=== PATIENT | male | born 1975 | race Caucasian/White ===

== ENCOUNTER 2016-11-15 13:31 | Emergency (ER) | payer OTHER ==
--- NOTE | 2016-11-15 16:01 | DIAGNOSTIC IMAGING REPORT ---
PROCEDURE: XR LUMBAR SPINE 2 OR 3 VIEWS INDICATION: TRAUMA TECHNIQUE: Three views. COMPARISON: None. FINDINGS: Normal alignment without fracture. Loss of lordosis. Moderate L5-S1 disc space narrowing. Soft tissues are unremarkable. IMPRESSION: 1. Loss of lordosis suggestive of muscular spasm. 2. L5-S1 disc space narrowing.
--- NOTE | 2016-11-15 16:35 | ED CLINICAL REPORT ---
Clinical Report - Physicians/Mid Levels [facility] [address] [place] [place] [address] 11/15/2016 15:02 Patient: GABBY FERNANDEZ Time Seen: 15:13. Arrived- By private vehicle. Historian- patient. HISTORY OF PRESENT ILLNESS Chief Complaint: INJURY TO MID- BACK. The injury occurred yesterday. (In a forest). ( Pt was walking across and downed log natural tree bridge. He lost his balance and fell 20 feet into a soft loam covered forest floor. He walked back to his house but notes back pain.). Fell over 10 feet. The patient complains of moderate pain. No blow to the head, neck pain or loss of consciousness. Not dazed. REVIEW OF SYSTEMS No numbness, dizziness, loss of vision, chest pain or difficulty breathing. No weakness, headache, laceration or vomiting. He has had nausea and abdominal pain. PAST HISTORY PCP: None Illness: TBI, remote history of back pain, migraine headaches. Last tetanus immunization was not more than 10 years ago. SOCIAL HISTORY Current every day smoker. ADDITIONAL NOTES The nursing notes have been reviewed. PHYSICAL EXAM Vital Signs: 11/15/2016 17:15 BP: 114/71. HR: 58. RR: 16. O2 saturation: 99%. Temp: 98.6 F. Pain level now: 04/18. 11/15/2016 15:30 BP: 128/84. HR: 82. RR: 16. O2 saturation: 98%. Pain level now: 04/18. 11/15/2016 15:07 BP: 131/89. HR: 71. RR: 18. O2 saturation: 100%. Temp: 97.4 F. Pain level now: 06/18. Appearance: Alert. Patient in mild distress. Head: Head non-tender. No swelling of head. Eyes: Pupils equal, round and reactive to light. EOM intact. ENT: No dental injury. Neck: Non-tender. Respiratory: Breath sounds normal. Chest nontender. Abdomen: No visible injury. Soft and nontender. Bowel sounds normal. Back: Moderate vertebral point tenderness over the upper and mid lumbar spine. Extremities: Normal inspection. Pelvis stable. Extremities atraumatic. No lower extremity edema. Neuro: Oriented X 3. No motor deficit. No sensory deficit. LABS, X-RAYS, AND EKG LS-Spine X-rays: (PROCEDURE: XR LUMBAR SPINE 2 OR 3 VIEWS INDICATION: TRAUMA TECHNIQUE: Three views. COMPARISON: None. FINDINGS: Normal alignment without fracture. Loss of lordosis. Moderate L5-S1 disc space narrowing. Soft tissues are unremarkable. IMPRESSION: 1. Loss of lordosis suggestive of muscular spasm. 2. L5-S1 disc space narrowing. Electronically Final signed by:Latrell Clay MD 11/15/2016 4:01:07 PM). PROGRESS AND PROCEDURES Course of Care: Meds [facility] [place]. Disposition: Discharged. Condition: stable. CLINICAL IMPRESSION Muscle strain of the low back. Contusion. Fall from tree. INSTRUCTIONS Apply ice. Prescription Medications: Hydrocodone/APAP 5mg / 325mg: take 1-2 orally every 4 hours as needed for pain. Dispense fifteen (15). No refill. Ibuprofen take 1 tablet orally every 8 hours for 7 days. No refill. (1 po 8hr not prn #30) Flexeril 10 mg: Take 1 orally every 8 hours as needed for muscle spasm. Dispense twenty (20). No refills. Substitution is permissible. Understanding of the discharge instructions verbalized by patient. Follow-up with: [facility], , , [address], , [place], [id number] Follow up in seven days if not better. Call for an appointment. (Electronically signed by Barrington Rascon MD 11/17/2016 13:58)
--- NOTE | 2016-11-15 16:35 | ED NURSING NOTES ---
Clinical Report - Nurses [facility] [place] [address] 11/15/2016 15:02 Patient: GABBY FERNANDEZ TRIAGE Triage time 15:Nov 15 2016. Acuity: LEVEL 3. Chief Complaint: BACK PAIN. Alert. PREMA COMA SCORE: Prema Coma Scale: 15- eyes open spontaneously (4); best verbal response- oriented x 4 (5); best motor response- obeys commands (6). --15:18 Valentino Gasca R.N. 15:07 11/15/16. BP: 131/89. HR: 71. RR: 18. O2 saturation: 100%. Temp: 97.4 F (oral). Pain level now: 10/10. Additional comments: Lower Back pain. --15:18 Valentino Gasca R.N. Weight: 58.9 kg stated. Height/Length: 70 inches Per Patient. BMI: 18.6. --15:09 Valentino Gasca R.N. Medications None. --15:11 Valentino Gasca R.N. Allergies NKA. --15:11 Valentino Gasca R.N. Medication/allergy information source: the patient. --15:18 Valentino Gasca R.N. History Arrived by private vehicle. Historian: patient. Accompanied by family and (mother). Primary physician (Betty). ( Back Pain exacerbated by falling 20 feet off a tree. Pt states that he was climbing a fallen tree with his dog.). This started yesterday. Onset. (about 24 hours ago). He has had trouble walking. History of recent trauma- (fell 20 feet). Occurred at home. Treatment STATE ASSESSED PROPERTIES DIRECTOR: None. PAST MEDICAL HX: Tetanus status: up-to-date. Immunizations: status is unknown. SOCIAL HX: Heavy tobacco smoker (cigarette)- less than 1 pack per day. History of drug use: marijuana. No alcohol use. No infectious disease exposure. ABUSE ASSESSMENT: No report of abuse. FALL RISK ASSESSMENT: Fall risk assessment completed. No fall risk identified. NUTRITIONAL RISK ASSESSMENT: The nutritional risk assessment revealed no deficiencies. FUNCTIONAL ASSESSMENT: Functional assessment: no impairments noted. LEARNING NEEDS ASSESSMENT: The learning needs assessment revealed no barriers. SKIN INTEGRITY ASSESSMENT: Skin integrity risk assessment completed. No skin integrity risk identified. --15:18 Valentino Gasca R.N. PROBLEMS: Pneumothorax. --15:13 Valentino Gasca R.N. Traumatic Brain Accident. --15:15 Valentino Gasca R.N. Migraine Headache. --15:16 Valentino Gasca R.N. ADDITIONAL SURGERIES: (L) Hand. --15:13 Valentino Gasca R.N. Interventions ID band on patient. To treatment room. --15:18 Valentino Gasca R.N. PHYSICAL ASSESSMENT To room via wheelchair. GENERAL / NEURO / PSYCH: Alert. Oriented X 4. Appears in pain. RESPIRATORY: Respirations not labored. CVS: Normal heart rate and rhythm. GI / : Abdomen soft. Bowel sounds within normal limits. EXTREMITIES: Limited ROM present (pt states that he is barely able to walk). Sensation intact in extremities. BACK: Vertebral point tenderness over the lumbar spine. --15:19 Valentino Gasca R.N. NURSING PROGRESS NOTES Patient gowned. Reassurance given. Patient identifiers checked. Call light placed in reach of patient. Side rails up x 1. Bed placed in lowest position. Brakes of bed on. Patient placed in chair. Patient ready for evaluation- chart flagged and ED physician notified. --15:19 Valentino Gasca R.N. 15:36 11/15/2016 Percocet (Oxycodone-Acetaminophen) PO 5/325 mg Tablets 1 tab given. Allergies verified, confirmed 5 rights and sedative warning given to the patient. --15:41 Valentino Gasca R.N. 16:00 11/15/16. Patient transported to radiology by wheelchair with tech. --16:30 Valentino Gasca R.N. Patient returned from radiology by stretcher with tech. ([id number]). --16:31 Valentino Gasca R.N. 17:17 11/15/2016 Valium (Diazepam) PO Tablets 5 mg given. Allergies verified, confirmed 5 rights and sedative warning given to the patient. --17:42 Valentino Gasca R.N. 17:20 11/15/2016 Ibuprofen PO 600 mg given. --17:43 Valentino Gasca R.N. 15:30 11/15/16. BP: 128/84. HR: 82. RR: 16. O2 saturation: 98%. Pain level now: 04/18. Additional comments: Back Pain. --17:53 Valentino Gasca R.N. DISPOSITION / DISCHARGE 17:15 11/15/16. BP: 114/71. HR: 58. RR: 16. O2 saturation: 99% on room air. Temp: 98.6 F (oral). Pain level now: 04/18. Additional comments: Lower Back Pain. --17:45 Valentino Gasca R.N. Departure time: 1725. --17:46 Valentino Gasca R.N. 17:25. Condition at departure: improved. Fall risk assessment completed. Risk factors identified include severe pain and patient history of fall. Fall interventions initiated. Patient placed in wheelchair. Instructed not to get up without assistance. No learning barriers present. Discharge instructions provided and reviewed with the patient. Reviewed medication(s) (prescription given to pt). Reviewed referral to family practice for followup. Patient verbalized understanding. Written instructions provided in Polish. The patient was discharged by the physician. He was discharged home and accompanied by parent. He left the Emergency Department in a wheelchair and via private vehicle. Parent driving. --17:48 Valentino Gasca R.N. Locked/Released at 11/15/2016 17:54 by Valentino Gasca R.N.
--- NOTE | 2016-11-15 16:35 | ED ORDER SUMMARY ---
..... Patient: GABBY FERNANDEZ OrderSheet [facility] VisitID: [id number] [place] [address] 41y, M Registration Date/Time: 11/15/2016 ORDER SHEET Weight: 58.9 kg (stated) Allergies: NKA GENERAL ORDERS: Lumbar Spine 2 or 3V Urgent (15:23 11/15/2016 Elizabeth PONCE) (Ack 15:41 TBergley) (15:55 TBergley) MEDICATION ORDERS: Percocet PO 5/325 mg one tab (HIGH ALERT MEDICATION) (15:26 11/15/2016 Elizabeth PONCE) (15:41 omandayan R.N.) Valium PO 5 mg (HIGH ALERT MEDICATION, NOW) (16:32 11/15/2016 Elizabeth PONCE) (17:42 Cara R.N.) Ibuprofen PO 600 mg (NOW) (16:33 11/15/2016 Elizabeth PONCE) (17:43 Cara R.N.) IV FLUIDS: ORDER SHEET NOTES: [Electronically signed by Valentino Gasca R.N. (17:54 11/15/2016)] [Electronically signed by Barrington Rascon MD (13:58 11/17/2016)] [Electronically locked/signed by Valentino Gasca R.N. (17:54 11/15/2016)]
--- NOTE | 2016-11-15 16:35 | ED NURSING NOTES ---
Clinical Report - Nurses [facility] [place] [address] 11/15/2016 15:02 Patient: GABBY FERNANDEZ TRIAGE Triage time 15:Nov 15 2016. Acuity: LEVEL 3. Chief Complaint: BACK PAIN. Alert. PREMA COMA SCORE: Prema Coma Scale: 15- eyes open spontaneously (4); best verbal response- oriented x 4 (5); best motor response- obeys commands (6). --15:18 Valentino Gasca R.N. 15:07 11/15/16. BP: 131/89. HR: 71. RR: 18. O2 saturation: 100%. Temp: 97.4 F (oral). Pain level now: 10/10. Additional comments: Lower Back pain. --15:18 Valentino Gasca R.N. Weight: 58.9 kg stated. Height/Length: 70 inches Per Patient. BMI: 18.6. --15:09 Valentino Gasca R.N. Medications None. --15:11 Valentino Gasca R.N. Allergies NKA. --15:11 Valentino Gasca R.N. Medication/allergy information source: the patient. --15:18 Valentino Gasca R.N. History Arrived by private vehicle. Historian: patient. Accompanied by family and (mother). Primary physician (Betty). ( Back Pain exacerbated by falling 20 feet off a tree. Pt states that he was climbing a fallen tree with his dog.). This started yesterday. Onset. (about 24 hours ago). He has had trouble walking. History of recent trauma- (fell 20 feet). Occurred at home. Treatment LEAD SECURITY OFFICER: None. PAST MEDICAL HX: Tetanus status: up-to-date. Immunizations: status is unknown. SOCIAL HX: Heavy tobacco smoker (cigarette)- less than 1 pack per day. History of drug use: marijuana. No alcohol use. No infectious disease exposure. ABUSE ASSESSMENT: No report of abuse. FALL RISK ASSESSMENT: Fall risk assessment completed. No fall risk identified. NUTRITIONAL RISK ASSESSMENT: The nutritional risk assessment revealed no deficiencies. FUNCTIONAL ASSESSMENT: Functional assessment: no impairments noted. LEARNING NEEDS ASSESSMENT: The learning needs assessment revealed no barriers. SKIN INTEGRITY ASSESSMENT: Skin integrity risk assessment completed. No skin integrity risk identified. --15:18 Valentino Gasca R.N. PROBLEMS: Pneumothorax. --15:13 Valentino Gasca R.N. Traumatic Brain Accident. --15:15 Valentino Gasca R.N. Migraine Headache. --15:16 Valentino Gasca R.N. ADDITIONAL SURGERIES: (L) Hand. --15:13 Valentino Gasca R.N. Interventions ID band on patient. To treatment room. --15:18 Valentino Gasca R.N. PHYSICAL ASSESSMENT To room via wheelchair. GENERAL / NEURO / PSYCH: Alert. Oriented X 4. Appears in pain. RESPIRATORY: Respirations not labored. CVS: Normal heart rate and rhythm. GI / : Abdomen soft. Bowel sounds within normal limits. EXTREMITIES: Limited ROM present (pt states that he is barely able to walk). Sensation intact in extremities. BACK: Vertebral point tenderness over the lumbar spine. --15:19 Valentino Gasca R.N. NURSING PROGRESS NOTES Patient gowned. Reassurance given. Patient identifiers checked. Call light placed in reach of patient. Side rails up x 1. Bed placed in lowest position. Brakes of bed on. Patient placed in chair. Patient ready for evaluation- chart flagged and ED physician notified. --15:19 Valentino Gasca R.N. 15:36 11/15/2016 Percocet (Oxycodone-Acetaminophen) PO 5/325 mg Tablets 1 tab given. Allergies verified, confirmed 5 rights and sedative warning given to the patient. --15:41 Valentino Gasca R.N. 16:00 11/15/16. Patient transported to radiology by wheelchair with tech. --16:30 Valentino Gasca R.N. Patient returned from radiology by stretcher with tech. ([id number]). --16:31 Valentino Gasca R.N. 17:17 11/15/2016 Valium (Diazepam) PO Tablets 5 mg given. Allergies verified, confirmed 5 rights and sedative warning given to the patient. --17:42 Valentino Gasca R.N. 17:20 11/15/2016 Ibuprofen PO 600 mg given. --17:43 Valentino Gasca R.N. 15:30 11/15/16. BP: 128/84. HR: 82. RR: 16. O2 saturation: 98%. Pain level now: 04/18. Additional comments: Back Pain. --17:53 Valentino Gasca R.N. DISPOSITION / DISCHARGE 17:15 11/15/16. BP: 114/71. HR: 58. RR: 16. O2 saturation: 99% on room air. Temp: 98.6 F (oral). Pain level now: 04/18. Additional comments: Lower Back Pain. --17:45 Valentino Gasca R.N. Departure time: 1725. --17:46 Valentino Gasca R.N. 17:25. Condition at departure: improved. Fall risk assessment completed. Risk factors identified include severe pain and patient history of fall. Fall interventions initiated. Patient placed in wheelchair. Instructed not to get up without assistance. No learning barriers present. Discharge instructions provided and reviewed with the patient. Reviewed medication(s) (prescription given to pt). Reviewed referral to family practice for followup. Patient verbalized understanding. Written instructions provided in [place]. The patient was discharged by the physician. He was discharged home and accompanied by parent. He left the Emergency Department in a wheelchair and via private vehicle. Parent driving. --17:48 Valentino Gasca R.N. Locked/Released at 11/15/2016 17:54 by Valentino Gasca R.N.
--- NOTE | 2016-11-15 16:35 | ED ORDER SUMMARY ---
..... Patient: GABBY FERNANDEZ OrderSheet [facility] VisitID: [id number] [place] [address] 41y, M Registration Date/Time: 11/15/2016 ORDER SHEET Weight: 58.9 kg (stated) Allergies: NKA GENERAL ORDERS: Lumbar Spine 2 or 3V Urgent (15:23 11/15/2016 Elizabeth PONCE) (Ack 15:41 TBergley) (15:55 TBergley) MEDICATION ORDERS: Percocet PO 5/325 mg one tab (HIGH ALERT MEDICATION) (15:26 11/15/2016 Elizabeth PONCE) (15:41 omandayan R.N.) Valium PO 5 mg (HIGH ALERT MEDICATION, NOW) (16:32 11/15/2016 Elizabeth PONCE) (17:42 Cara R.N.) Ibuprofen PO 600 mg (NOW) (16:33 11/15/2016 Elizabeth PONCE) (17:43 Cara R.N.) IV FLUIDS: ORDER SHEET NOTES: [Electronically signed by Valentino Gasca R.N. (17:54 11/15/2016)] [Electronically signed by Barrington Rascon MD (13:58 11/17/2016)] [Electronically locked/signed by Valentino Gasca R.N. (17:54 11/15/2016)]
--- NOTE | 2016-11-15 16:35 | ED CLINICAL REPORT ---
Clinical Report - Physicians/Mid Levels [facility] [address] [place] [place] [address] 11/15/2016 15:02 Patient: GABBY FERNANDEZ Time Seen: 15:13. Arrived- By private vehicle. Historian- patient. HISTORY OF PRESENT ILLNESS Chief Complaint: INJURY TO MID- BACK. The injury occurred yesterday. (In a forest). ( Pt was walking across and downed log natural tree bridge. He lost his balance and fell 20 feet into a soft loam covered forest floor. He walked back to his house but notes back pain.). Fell over 10 feet. The patient complains of moderate pain. No blow to the head, neck pain or loss of consciousness. Not dazed. REVIEW OF SYSTEMS No numbness, dizziness, loss of vision, chest pain or difficulty breathing. No weakness, headache, laceration or vomiting. He has had nausea and abdominal pain. PAST HISTORY PCP: None Illness: TBI, remote history of back pain, migraine headaches. Last tetanus immunization was not more than 10 years ago. SOCIAL HISTORY Current every day smoker. ADDITIONAL NOTES The nursing notes have been reviewed. PHYSICAL EXAM Vital Signs: 11/15/2016 17:15 BP: 114/71. HR: 58. RR: 16. O2 saturation: 99%. Temp: 98.6 F. Pain level now: 04/18. 11/15/2016 15:30 BP: 128/84. HR: 82. RR: 16. O2 saturation: 98%. Pain level now: 04/18. 11/15/2016 15:07 BP: 131/89. HR: 71. RR: 18. O2 saturation: 100%. Temp: 97.4 F. Pain level now: 06/18. Appearance: Alert. Patient in mild distress. Head: Head non-tender. No swelling of head. Eyes: Pupils equal, round and reactive to light. EOM intact. ENT: No dental injury. Neck: Non-tender. Respiratory: Breath sounds normal. Chest nontender. Abdomen: No visible injury. Soft and nontender. Bowel sounds normal. Back: Moderate vertebral point tenderness over the upper and mid lumbar spine. Extremities: Normal inspection. Pelvis stable. Extremities atraumatic. No lower extremity edema. Neuro: Oriented X 3. No motor deficit. No sensory deficit. LABS, X-RAYS, AND EKG LS-Spine X-rays: (PROCEDURE: XR LUMBAR SPINE 2 OR 3 VIEWS INDICATION: TRAUMA TECHNIQUE: Three views. COMPARISON: None. FINDINGS: Normal alignment without fracture. Loss of lordosis. Moderate L5-S1 disc space narrowing. Soft tissues are unremarkable. IMPRESSION: 1. Loss of lordosis suggestive of muscular spasm. 2. L5-S1 disc space narrowing. Electronically Final signed by:Latrell Clay MD 11/15/2016 4:01:07 PM). PROGRESS AND PROCEDURES Course of Care: Meds [facility] [place]. Disposition: Discharged. Condition: stable. CLINICAL IMPRESSION Muscle strain of the low back. Contusion. Fall from tree. INSTRUCTIONS Apply ice. Prescription Medications: Hydrocodone/APAP 5mg / 325mg: take 1-2 orally every 4 hours as needed for pain. Dispense fifteen (15). No refill. Ibuprofen take 1 tablet orally every 8 hours for 7 days. No refill. (1 po 8hr not prn #30) Flexeril 10 mg: Take 1 orally every 8 hours as needed for muscle spasm. Dispense twenty (20). No refills. Substitution is permissible. Understanding of the discharge instructions verbalized by patient. Follow-up with: [facility], , , [address], , [place], [id number] Follow up in seven days if not better. Call for an appointment. (Electronically signed by Barrington Rascon MD 11/17/2016 13:58)
--- NOTE | 2016-11-17 13:58 | ED MED RECONCILIATION SUMMARY ---
Patient: GABBY FERNANDEZ Medication Reconciliation Report [facility] VisitID: [id number] [place] [address] 41y, M Registration Date/Time: 11/15/2016 Weight: 58.9 kg Height/Length: 70 in. BMI: 18.6 ALLERGIES: NKA The patient's Home Medications are listed below: NONE. The source(s) of the original Home Medication information: patient The following Medications were given to the patient in the Emergency Department: Percocet [PO] PO 1 tab, administered: 11/15/2016 3:36:00 PM Valium [PO] PO 5 mg, administered: 11/15/2016 5:17:00 PM Ibuprofen [PO] PO 600 mg, administered: 11/15/2016 5:20:00 PM The following Medications were prescribed to the patient: Hydrocodone/APAP 5mg / 325mg: take 1-2 orally every 4 hours as needed for pain. Dispense fifteen (15). No refill. -- Barrington Rascon MD Ibuprofen take 1 tablet orally every 8 hours for 7 days. No refill.(1 po 8hr not prn #30) -- [place] Rascon MD Flexeril 10 mg: Take 1 orally every 8 hours as needed for muscle spasm. Dispense twenty (20). No refills. Substitution is permissible. -- Barrington Rascon MD
--- NOTE | 2016-11-17 13:58 | ED MAR SUMMARY ---
..... Medication Administration Record [facility] [address] [place] [address] Patient: GABBY FERNANEDZ Visit ID: [id number] 41y, M Weight: 58.9 kg Height/Length: 70 in BMI: 18.6 ALLERGIES: NKA Given 15:36 11/15/2016 Valentino Gasca, R.N. Medication Administered: PERCOCET [PO] (OXYCODONE-ACETAMINOPHEN), Dose: 1 tab 5/325 mg Tablets PO. Medication Ordered: Percocet PO 5/325 mg one tab (HIGH ALERT MEDICATION). Given 17:17 11/15/2016 Valentino Gasca, R.N. Medication Administered: VALIUM [PO] (DIAZEPAM), Dose: 5 mg Tablets PO. Medication Ordered: Valium PO 5 mg (HIGH ALERT MEDICATION, NOW). Given 17:20 11/15/2016 Valentino Gasca, R.N. Medication Administered: IBUPROFEN [PO], Dose: 600 mg PO. Medication Ordered: Ibuprofen PO 600 mg (NOW).
--- NOTE | 2016-11-17 13:58 | ED DISCHARGE INSTRUCTIONS ---
Patient: GABBY FERNANDEZ General Instructions [facility] VisitID: [id number] [address], [place] [address] 41y, M Registration Date/Time: 11/15/2016 Muscle strain of the low back. Contusion. Fall from tree. INSTRUCTIONS Apply ice. Prescription Medications: Hydrocodone/APAP 5mg / 325mg: take 1-2 orally every 4 hours as needed for pain. Dispense fifteen (15). No refill. Ibuprofen take 1 tablet orally every 8 hours for 7 days. No refill. (1 po 8hr not prn #30) Flexeril 10 mg: Take 1 orally every 8 hours as needed for muscle spasm. Dispense twenty (20). No refills. Substitution is permissible. Understanding of the discharge instructions verbalized by patient. Follow-up with: [facility], , , [address], , [place], [address] Follow up in seven days if not better. Call for an appointment. ADDITIONAL INFORMATION Mechanical Fall You have had a fall today. It appears that the cause is mechanical. That means that you slipped, tripped or lost your balance. If your fall had been due to fainting or a seizure, further tests would be required. Home Care: Rest today and resume your normal activities when you are feeling back to normal. If you were injured during the fall, follow the advice from your doctor regarding care of your injury. You may use acetaminophen (Tylenol) or ibuprofen (Motrin, Advil) to control pain, unless another pain medicine was prescribed. [NOTE: If you have chronic liver or kidney disease or ever had a stomach ulcer or GI bleeding, talk with your doctor before using these medicines.] Fall Prevention: Was there anything that caused your fall that can be fixed, removed, or replaced? Make your home safe by keeping walkways clear of objects you may trip over. Use non-slip pads under rugs. Do not walk in poorly lit areas. Do not stand on chairs or wobbly ladders. Use caution when reaching overhead or looking upward. This position can cause a loss of balance. Be sure your shoes fit properly, have non-slip bottoms and are in good condition. Be cautious when going up and down curbs, and walking on uneven sidewalks. If your balance is poor, consider using a cane or walker. Stay as active as you can. Balance, flexibility, strength, and endurance all come from exercise. They all play a role in preventing falls. Follow Up with your doctor or as advised by our staff. Get Prompt Medical Attention if any of the following occur: Repeated mechanical falls, or unexplained falls Dizziness, fainting or seizure Severe headache Chest pain or shortness of breath Palpitations (very rapid or very slow or irregular heartbeat) Blood in vomit, stools (black or red color) Weakness of an arm or leg or one side of the face Difficulty with speech or vision Back Pain [Acute Or Chronic] Back pain is usually caused by an injury to the muscles or ligaments of the spine. Sometimes the disks that separate each bone in the spine may bulge and cause pain by pressing on a nearby nerve. Back pain may also appear after a sudden twisting/bending force (such as in a car accident), after a simple awkward movement, or lifting something heavy with poor body positioning. In either case, muscle spasm is often present and adds to the pain. Acute back pain usually gets better in one to two weeks. Back pain related to disk disease, arthritis in the spinal joints or spinal stenosis (narrowing of the spinal canal) can become chronic and last for months or years. Unless you had a physical injury (for example, a car accident or fall) X-rays are usually not ordered for the initial evaluation of back pain. If pain continues and does not respond to medical treatment, x-rays and other tests may be performed at a later time. Home Care: You may need to stay in bed the first few days. But, as soon as possible, begin sitting or walking to avoid problems with prolonged bed rest (muscle weakness, worsening back stiffness and pain, blood clots in the legs). When in bed, try to find a position of comfort. A firm mattress is best. Try lying flat on your back with pillows under your knees. You can also try lying on your side with your knees bent up towards your chest and a pillow between your knees. Avoid prolonged sitting. This puts more stress on the lower back than standing or walking. During the first two days after injury, apply an ICE PACK to the painful area for 20 minutes every 2-4 hours. This will reduce swelling and pain. HEAT (hot shower, hot bath or heating pad) works well for muscle spasm. You can start with ice, then switch to heat after two days. Some patients feel best alternating ice and heat treatments. Use the one method that feels the best to you. You may use acetaminophen (Tylenol) or ibuprofen (Motrin, Advil) to control pain, unless another pain medicine was prescribed. [NOTE: If you have chronic liver or kidney disease or ever had a stomach ulcer or GI bleeding, talk with your doctor before using these medicines.] Be aware of safe lifting methods and do not lift anything over 15 pounds until all the pain is gone. Follow Up with your doctor or this facility if your symptoms do not start to improve after one week. Physical therapy may be needed. [NOTE: If X-rays were taken, they will be reviewed by a radiologist. You will be notified of any new findings that may affect your care.] Get Prompt Medical Attention if any of the following occur: Pain becomes worse or spreads to your legs Weakness or numbness in one or both legs Loss of bowel or bladder control Numbness in the groin or genital area Contusion,Soft Tissue You have a CONTUSION, which is a bruise with swelling and some bleeding under the skin. There are no broken bones. This injury takes a few days to a few weeks to heal. Home Care: 1) Keep the injured part elevated to reduce pain and swelling. This is especially important during the first 48 hours. 2) Make an ice pack (ice cubes in a plastic bag, wrapped in a towel) and apply for 20 minutes every 1-2 hours the first day. Continue this 3-4 times a day until the pain and swelling goes away. 3) You may use acetaminophen (Tylenol) or ibuprofen (Motrin, Advil) to control pain, unless another pain medicine was prescribed. [ NOTE : If you have chronic liver or kidney disease or ever had a stomach ulcer or GI bleeding, talk with your doctor before using these medicines.] Follow Up with your doctor or this facility if you are not improving within the next THREE days. [NOTE: If X-rays were taken, they will be reviewed by a radiologist. You will be notified of any new findings that may affect your care.] Get Prompt Medical Attention if any of the following occur: -- Pain or swelling increases -- Injured arm or leg becomes cold, blue, numb or tingly -- Redness, warmth or drainage from the skin Hydrocodone Bitartrate, Acetaminophen Oral tablet What is this medicine? ACETAMINOPHEN; HYDROCODONE (a set a MARIANNE blake fen; naima droe KOE done) is a pain reliever. It is used to treat mild to moderate pain. How should I use this medicine? Take this medicine by mouth. Swallow it with a full glass of water. Follow the directions on the prescription label. If the medicine upsets your stomach, take the medicine with food or milk. Do not take more than you are told to take. Talk to your drill press set up operator regarding the use of this medicine in children. This medicine is not approved for use in children. What side effects may I notice from receiving this medicine? Side effects that you should report to your doctor or health respiratory care assistant as soon as possible: allergic reactions like skin rash, itching or hives, swelling of the face, lips, or tongue breathing problems confusion feeling faint or lightheaded, falls stomach pain yellowing of the eyes or skin Side effects that usually do not require medical attention (report to your doctor or health respiratory care assistant if they continue or are bothersome): nausea, vomiting stomach upset What may interact with this medicine? alcohol antihistamines isoniazid medicines for depression, anxiety, or psychotic disturbances medicines for sleep muscle relaxants naltrexone narcotic medicines (opiates) for pain phenobarbital ritonavir tramadol What if I miss a dose? If you miss a dose, take it as soon as you can. If it is almost time for your next dose, take only that dose. Do not take double or extra doses. Where should I keep my medicine? Keep out of the reach of children. This medicine can be abused. Keep your medicine in a safe place to protect it from theft. Do not share this medicine with anyone. Selling or giving away this medicine is dangerous and against the law. Store at room temperature between 15 and 30 degrees C (59 and 86 degrees F). Protect from light. Keep container tightly closed. Throw away any unused medicine after the expiration date. Discard unused medicine and used packaging carefully. Pets and children can be harmed if they find used or lost packages. What should I tell my health care provider before I take this medicine? They need to know if you have any of these conditions: brain tumor Crohn's disease, inflammatory bowel disease, or ulcerative colitis drink more than 3 alcohol-containing drinks per day drug abuse or addiction head injury heart or circulation problems kidney disease or problems going to the bathroom liver disease lung disease, asthma, or breathing problems an unusual or allergic reaction to acetaminophen, hydrocodone, other opioid analgesics, other medicines, foods, dyes, or preservatives or trying to get breast-feeding What should I watch for while using this medicine? Tell your doctor or health respiratory care assistant if your pain does not go away, if it gets worse, or if you have new or a different type of pain. You may develop tolerance to the medicine. Tolerance means that you will need a higher dose of the medicine for pain relief. Tolerance is normal and is expected if you take the medicine for a long time. Do not suddenly stop taking your medicine because you may develop a severe reaction. Your body becomes used to the medicine. This does NOT mean you are addicted. Addiction is a behavior related to getting and using a drug for a non-medical reason. If you have pain, you have a medical reason to take pain medicine. Your doctor will tell you how much medicine to take. If your doctor wants you to stop the medicine, the dose will be slowly lowered over time to avoid any side effects. You may get drowsy or dizzy when you first start taking the medicine or change doses. Do not drive, use machinery, or do anything that may be dangerous until you know how the medicine affects you. Stand or sit up slowly. There are different types of narcotic medicines (opiates) for pain. If you take more than one type at the same time, you may have more side effects. Give your health care provider a list of all medicines you use. Your doctor will tell you how much medicine to take. Do not take more medicine than directed. Call emergency for help if you have problems breathing. The medicine will cause constipation. Try to have a bowel movement at least every 2 to 3 days. If you do not have a bowel movement for 3 days, call your doctor or health respiratory care assistant. Too much acetaminophen can be very dangerous. Do not take Tylenol (acetaminophen) or medicines that contain acetaminophen with this medicine. Many non-prescription medicines contain acetaminophen. Always read the labels carefully. You have been given the following additional information: Fall, Mechanical Back Pain (Acute Or Chronic) Contusion, Soft Tissue Hydrocodone Bitartrate, Acetaminophen Oral tablet (Electronically signed by Barrington Rascon MD 11/17/2016 13:58)
--- NOTE | 2016-11-17 13:58 | ED MAR SUMMARY ---
..... Medication Administration Record [facility] [address] [place] [address] Patient: GABBY FERNANDEZ Visit ID: [id number] 41y, M Weight: 58.9 kg Height/Length: 70 in BMI: 18.6 ALLERGIES: NKA Given 15:36 11/15/2016 Valentino Gasca, R.N. Medication Administered: PERCOCET [PO] (OXYCODONE-ACETAMINOPHEN), Dose: 1 tab 5/325 mg Tablets PO. Medication Ordered: Percocet PO 5/325 mg one tab (HIGH ALERT MEDICATION). Given 17:17 11/15/2016 Valentino Gasca, R.N. Medication Administered: VALIUM [PO] (DIAZEPAM), Dose: 5 mg Tablets PO. Medication Ordered: Valium PO 5 mg (HIGH ALERT MEDICATION, NOW). Given 17:20 11/15/2016 Valentino Gasca, R.N. Medication Administered: IBUPROFEN [PO], Dose: 600 mg PO. Medication Ordered: Ibuprofen PO 600 mg (NOW).
--- NOTE | 2016-11-17 13:58 | ED MED RECONCILIATION SUMMARY ---
Patient: GABBY FERNANDEZ Medication Reconciliation Report [facility] VisitID: [id number] [place] [address] 41y, M Registration Date/Time: 11/15/2016 Weight: 58.9 kg Height/Length: 70 in. BMI: 18.6 ALLERGIES: NKA The patient's Home Medications are listed below: NONE. The source(s) of the original Home Medication information: patient The following Medications were given to the patient in the Emergency Department: Percocet [PO] PO 1 tab, administered: 11/15/2016 3:36:00 PM Valium [PO] PO 5 mg, administered: 11/15/2016 5:17:00 PM Ibuprofen [PO] PO 600 mg, administered: 11/15/2016 5:20:00 PM The following Medications were prescribed to the patient: Hydrocodone/APAP 5mg / 325mg: take 1-2 orally every 4 hours as needed for pain. Dispense fifteen (15). No refill. -- Barrington Rascon MD Ibuprofen take 1 tablet orally every 8 hours for 7 days. No refill.(1 po 8hr not prn #30) -- Barrington Rascon MD Flexeril 10 mg: Take 1 orally every 8 hours as needed for muscle spasm. Dispense twenty (20). No refills. Substitution is permissible. -- Barrington Rascon MD
== END 2016-11-15 17:25 | disposition home or self-care (01) ==
LOC: ED SRH 13:31
DX: S39.012A Strain of muscle, fascia and tendon of lower back, initial encounter (principal); T14.8 Other injury of unspecified body region; W17.89XA Other fall from one level to another, initial encounter; Y92.821 Forest as the place of occurrence of the external cause; Y93.01 Activity, walking, marching and hiking; F17.200 Nicotine dependence, unspecified, uncomplicated